=== PATIENT | male | born 1955 | race Hispanic/Latino ===

== ENCOUNTER 2018-09-11 08:39 | Day surgery (SDC) | payer OTHER ==
[2018-09-11] MEDS ORDERED: NACL 0.9% 1000 ML 1,000 ML IV SCH (09:00)
[2018-09-11] MEDS ORDERED: DIPRIVAN 10 MG/ML IV ONE (09:05)
--- NOTE | 2018-09-11 09:17 | Anesthesia Consultation ---
Anesthesia Consult and Med Hx Date of service: 09/11/18 - Airway Anesthetic Teeth Evaluation: Caps (upper/lower gold caps) ROM Head & Neck: Adequate Mental/Hyoid Distance: Adequate Mallampati Class: Class III Intubation Access Assessment: Possibly Difficult - Pulmonary Exam CTA: Yes - Cardiac Exam Cardiac Exam: RRR - Pre-Operative Health Status ASA Pre-Surgery Classification: ASA2 Proposed Anesthetic Plan: MAC - Cardiovascular System Hx Hypertension: Yes - Gastrointestinal Hx Gastroesophageal Reflux Disease: Yes (occ, well controlled )
--- NOTE | 2018-09-11 09:18 | Anesthesia Day of Surgery ---
Anesthesia Day of Surgery - Day of Surgery Patient Examined: Yes Patient H&P Reviewed: Yes Patient is NPO: Yes
[2018-09-11] MEDS ORDERED: VERSED ONE (09:33)
--- NOTE | 2018-09-11 09:52 | Procedure Note ---
Date of procedure: 09/11/18 Pre-op diagnosis: Epigastric and Upper Abdominal Pain Post-op diagnosis: other (Mild to Moderate Distal Erosive Esophagitis/ Gastritis/ No Duodenal Ulcer noted) Procedure: EGD with Biopsy Anesthesia: MAC Surgeon: JOHN RICKS Estimated blood loss: minimal Pathology: list Specimen disposition: to lab Condition: stable Disposition: same day (Avoid aspirin and NSAID for 5 days. Follow up in 1 to 2 weeks ([phone]). Treat with PPI and prn Bentyl)
[2018-09-11 10:31] VITALS: BP 123/82
--- NOTE | 2018-09-11 12:01 | Operative Report ---
PROCEDURE: EGD with biopsy. INDICATIONS: This is a 63-year-old white male with an underlying history of hypertension and hyperlipidemia, prior history of hernia repair, who has lately been having some upper abdominal and epigastric pain. EGD was done to make sure there was not any significant upper GI pathology present. DESCRIPTION OF PROCEDURE: Procedure was done after getting informed consent with MAC anesthesia. Instrument was passed through the hypopharynx into the esophagus, which showed mild to moderate distal erosive esophagitis. Biopsy was done from the distal esophagus. Stomach showed some antral gastritis. No ulcers were noted in the straight or the retroverted view. The pylorus was patent. The duodenum in the first and the second portion appeared normal. She has a prior history of duodenal ulcer, but no duodenal ulcer at present. Biopsy was done from the gastric antrum, angularis incisura, and the gastric body to rule out for H. pylori and atrophic gastritis. There was minimal bleeding from the biopsy sites and no complications associated with the procedure. ASSESSMENT: Upper abdominal pain, mild to moderate distal erosive esophagitis, gastritis. No duodenal ulcer noted. Plan is to treat the patient with PPI, p.r.n. dose of Bentyl. The patient will be asked to avoid aspirin and aspirin-related products for the next few days and follow up in the office in 1-2 weeks' time. RN, Mee Pena was in the room for the entirety of the procedure. If the patient has persistence of abdominal pain, then a CT scan of the abdomen and pelvis may be done as an outpatient. JOB# [id number] YVONNE/CARLOS
== END 2018-09-11 08:40 | disposition home or self-care (01) ==
LOC: GIO 08:39
DX: K29.50 Unspecified chronic gastritis without bleeding (principal); K21.0 Gastro-esophageal reflux disease with esophagitis; I10 Essential (primary) hypertension; E78.5 Hyperlipidemia, unspecified; E78.00 Pure hypercholesterolemia, unspecified; Z98.890 Other specified postprocedural states; Z88.0 Allergy status to penicillin; Z79.899 Other long term (current) drug therapy; Z87.891 Personal history of nicotine dependence; Z88.8 Allergy status to other drugs, medicaments and biological substances
CPT/HCPCS: 43239; 88305; 88342; J2250; J2704; J7030